=== PATIENT | male | born 1950 | race Caucasian/White ===

== ENCOUNTER 2016-10-11 07:46 | Emergency (ER) | payer MEDICARE ==
[~2016-10-11] VITALS: Ht 180.3 cm; Wt 90.6 kg
[2016-10-11 07:50] VITALS: BP 155/79
[2016-10-11 09:27] LABS: BLOOD UREA NITROGEN 9 mg/dL (7-18)
[2016-10-11] MEDS ORDERED: CEFTRIAXONE 250 MG IM ONE (09:30)
[2016-10-11] MEDS ORDERED: AZITHROMYCIN 500 MG TABLET PO ONE (09:30)
[2016-10-11] MEDS ORDERED: CEFTRIAXONE 250 MG ONE (09:34)
[2016-10-11] MEDS ORDERED: AZITHROMYCIN 500 MG TABLET ONE (09:34)
[2016-10-11] MEDS ORDERED: LIDOCAINE 1%, 20ML ONE (09:35)
== END 2016-10-11 10:28 | disposition home or self-care (01) ==
LOC: ED 10:00
DX: N34.1 Nonspecific urethritis (principal); I10 Essential (primary) hypertension
CPT/HCPCS: 36415; 80048; 81003; 82040; 85025; 96372; 99284; J0696